=== PATIENT | male | born 1955 | race Caucasian/White ===

== ENCOUNTER 2018-08-28 06:30 | Inpatient (IN) ==
[~2018-08-28 06:30] MED LIST: DEXAMETHASONE 4 MG/1 ML VIAL IV ONE; MOXIFLOXACIN 0.5% OPH SOLN 3 ML BOTTLE ONE; NEPAFENAC 0.1% OPH SOLN 3 ML BOTTLE ONE; PHENYLEPHRINE 10% ONE; prednisoLONE ACETATE 1% OPH SUSP 5 ML BOTTLE ONE
[2018-08-28] MEDS ORDERED: LIDOCAINE 1%/EPI INJ 20 ML VIAL ONE (06:36)
[2018-08-28] MEDS ORDERED: FAMOTIDINE 20 MG TABLET PO ONE (07:26)
[2018-08-28] MEDS ORDERED: DIAZEPAM 5 MG TABLET PO ONE (07:26)
[2018-08-28 07:47] LABS: Basophils # 0.1 10*3/uL (0.0-0.2); Basophils % 1.1 % (0.0-0.8); Eosinophils # 0.4 10*3/uL (0.0-0.87); Eosinophils % 5.8 % (0.00-10.9); Hemoglobin 15.1 GM/DL (14.0-18.0); Immature Granulocytes % 0.5 %; Immature Granulocytes Absolute 0.03 #; Lymphocytes # 1.8 10*3/uL (1.4-4.0); Mean Corpuscular HGB Conc 35.1 GM/DL (32-36); Mean Corpuscular Hemoglobin 32 PG (27-34); Mean Corpuscular Volume 91.3 FL (87-102); Mean Platelet Volume 11.3 FL (9.6-12.0); Monocytes # 0.9 10*3/uL (0.11-0.8); Monocytes % 14.5 % (1.7-12.7); Neutrophils # 3.1 10*3/uL (1.4-7.4); Neutrophils % 49.1 % (38.7-73.9); Platelet Count 150 T/CUMM (130-400); Red Blood Count 4.71 MC/CUMM (3.8-5.5); Red Cell Distribution Width 12.2 % (9.3-17.3); White Blood Count 6.2 T/CUMM (4-12)
[2018-08-28 08:10] LABS: Calcium 10.2 MG/DL (8.5-10.1); Osmolality,Calculated 283.8 MOS/KG (273-304); Potassium 3.9 MMOL/L (3.5-5.1)
[2018-08-28] MEDS: LACTATED RINGERS 1,000 ML IV SCH ×3 (08:30→13:57)
[2018-08-28] MEDS ORDERED: FAMOTIDINE 20 MG TABLET ONE (08:32)
[2018-08-28] MEDS ORDERED: DIAZEPAM 5 MG TABLET ONE (08:32)
[2018-08-28] MEDS ORDERED: cefTRIAXone 1,000 MG in SYRINGE 1 EACH IV ONE (10:35)
[2018-08-28] MEDS ORDERED: cefTRIAXone 1,000 MG VIAL ONE (10:36)
[2018-08-28] MEDS ORDERED: PROPOFOL 200 MG/20 ML VIAL IV ONE (12:08)
[2018-08-28] MEDS ORDERED: ONDANSETRON 4 MG/2 ML VIAL ONE (12:09)
[2018-08-28] MEDS ORDERED: KETAMINE 500 MG/10 ML VIAL ONE (12:09)
[2018-08-28] MEDS ORDERED: MIDAZOLAM 2 MG/2 ML VIAL ONE (12:09)
[2018-08-28] MEDS ORDERED: DEXAMETHASONE 20 MG/5 ML VIAL ONE (12:09)
[2018-08-28] MEDS ORDERED: fentaNYL 100 MCG/2 ML VIAL ONE (12:09)
[2018-08-28] MEDS ORDERED: GLYCOPYRROLATE 0.4 MG/2 ML VIAL ONE (12:10)
[2018-08-28] MEDS ORDERED: ROCURONIUM 100 MG/10 ML VIAL IV ONE (12:10)
[2018-08-28] MEDS ORDERED: MINERAL OIL/PETROLATUM OPH OINT 3.5 GM TUBE ONE (12:10)
[2018-08-28] MEDS ORDERED: NEOSTIGMINE 10 MG/10 ML VIAL ONE (12:11)
[2018-08-28] MEDS ORDERED: PHENYLEPHRINE 10 MG/1 ML VIAL IV ONE (12:11)
[2018-08-28] MEDS ORDERED: SODIUM CHLORIDE 0.9% 250 ML IV ONE (12:11)
[2018-08-28] MEDS ORDERED: LACTATED RINGERS 1,000 ML IV ONE (12:11)
[2018-08-28] MEDS: OXYMETAZOLINE 0.05% NASAL SPRAY 15 ML BOTTLE BOTH NARES PRN (13:20)
[2018-08-28] MEDS ORDERED: ONDANSETRON 4 MG/2 ML VIAL IV PRN (13:21)
[2018-08-28] MEDS ORDERED: diphenhydrAMINE 50 MG/1 ML VIAL IV PRN (13:21)
[2018-08-28] MEDS ORDERED: PHENYLEPHRINE 0.125% NASAL DROPS 15 ML BOTTLE BOTH NARES ONE (13:25)
[2018-08-28] MEDS ORDERED: IBUPROFEN 100 MG/5 ML UDCUP PO PRN (13:27)
[2018-08-28] MEDS ORDERED: HYDROmorphone PCA 30 MG/30 ML SYRINGE IV SCH (13:30)
[2018-08-28] MEDS ORDERED: RACEPINEPHRINE 0.5 ML NEB RESP TX ONE ×2 (13:36→13:38)
[2018-08-28] MEDS ORDERED: HYDROcod/ACETAMIN 7.5-325 MG/15 ML UDCUP PO PRN (13:46)
[2018-08-28] MEDS: HYDROmorphone 2 MG/1 ML VIAL IV PRN ×2 (14:05→15:59)
[2018-08-28] MEDS: DEXAMETHASONE 4 MG/1 ML VIAL IV SCH ×2 (15:08→21:58)
[2018-08-28] MEDS ORDERED: hydrALAZINE 20 MG/1 ML VIAL IV PRN (17:34)
[2018-08-28] MEDS: KETOROLAC 30 MG/1 ML VIAL IV PRN ×2 (17:42→23:51)
[2018-08-28] MEDS ORDERED: GLUCAGON 1 MG VIAL IM PRN (18:21)
[2018-08-28] MEDS ORDERED: DEXTROSE 50% 25 GM/50 ML SYRINGE IV PRN (18:21)
[2018-08-28] MEDS ORDERED: DIAZEPAM 5 MG TABLET PO PRN (18:27)
[2018-08-28] MEDS: INSULIN LISPRO 100 UNIT/ML SUBCUT SCH (20:56)
[2018-08-28] MEDS: amLODIPine 10 MG TABLET PO SCH (21:42)
[2018-08-28] MEDS: AMOXICILLIN/CLAV ES 600 125 ML/BOTTLE PO SCH (21:42)
[2018-08-28] MEDS: CHLORHEXIDINE 0.12% ORAL RINSE 60 ML BOTTLE SWISH/SPIT SCH (21:59)
[2018-08-29] MEDS: LACTATED RINGERS 1,000 ML IV SCH ×2 (02:35→15:31)
[2018-08-29 04:42] LABS: Basophils % 0.2 % (0.0-0.8); Hematocrit 43.4 VOL% (42.0-52.0); Immature Granulocytes % 0.7 %; Immature Granulocytes Absolute 0.09 #; Lymphocytes # 0.9 10*3/uL (1.4-4.0); Lymphocytes % 7.6 % (21.2-54.2); Mean Corpuscular HGB Conc 34.6 GM/DL (32-36); Mean Corpuscular Hemoglobin 32 PG (27-34); Mean Corpuscular Volume 93.1 FL (87-102); Mean Platelet Volume 12.4 FL (9.6-12.0); Monocytes # 0.7 10*3/uL (0.11-0.8); Monocytes % 5.5 % (1.7-12.7); Neutrophils # 10.7 10*3/uL (1.4-7.4); Platelet Count 139 T/CUMM (130-400); Red Blood Count 4.66 MC/CUMM (3.8-5.5); Red Cell Distribution Width 12.3 % (9.3-17.3); White Blood Count 12.4 T/CUMM (4-12)
[2018-08-29 05:03] LABS: Calcium 9.8 MG/DL (8.5-10.1); Osmolality,Calculated 284.4 MOS/KG (273-304); Potassium 4.5 MMOL/L (3.5-5.1)
[2018-08-29] MEDS: DEXAMETHASONE 4 MG/1 ML VIAL IV SCH ×3 (06:42→21:16)
[2018-08-29] MEDS: LOSARTAN 50 MG TABLET PO SCH (08:26)
[2018-08-29] MEDS: INSULIN LISPRO 100 UNIT/ML SUBCUT SCH ×4 (08:29→21:15)
[2018-08-29] MEDS: AMOXICILLIN/CLAV ES 600 125 ML/BOTTLE PO SCH ×2 (08:30→21:14)
[2018-08-29] MEDS: PIOGLITAZONE 15 MG TABLET PO SCH (08:33)
[2018-08-29] MEDS: HYDROmorphone 2 MG/1 ML VIAL IV PRN ×2 (08:34→15:32)
[2018-08-29] MEDS ORDERED: NON-FORMULARY MEDICATION (Umeclidinium Bromide [Incruse Ellipta] 1 PUFF) INH SCH (09:00)
[2018-08-29] MEDS ORDERED: NON-FORMULARY MEDICATION (Cyanocobalamin (Vitamin B-12) [Vitamin B-12] 5,000 MCG) PO SCH (09:00)
[2018-08-29] MEDS ORDERED: LIRAGLUTIDE SQ SCH (09:00)
[2018-08-29] MEDS ORDERED: AMINO ACIDS PO SCH (09:00)
[2018-08-29] MEDS ORDERED: [UNRECOGNIZED DRUG - OTHER] SQ SCH (09:00)
[2018-08-29] MEDS ORDERED: INSULIN DEGLUDEC SQ SCH (09:00)
[2018-08-29] MEDS ORDERED: cloNIDine 0.3 MG/24 HR PATCH TRANSDERM SCH (10:00)
[2018-08-29] MEDS ORDERED: MAGNESIUM SULF RIDER 4 GM in PREMIX 1 EACH IV PRN (11:05)
[2018-08-29] MEDS: MAGNESIUM SULF RIDER 2 GM in PREMIX 1 EACH IV PRN ×2 (11:47→13:42)
[2018-08-29] MEDS ORDERED: HYDROmorphone 2 MG TABLET PO PRN (12:25)
[2018-08-29] MEDS ORDERED: hydrALAZINE 20 MG/1 ML VIAL IV PRN (12:44)
[2018-08-29] MEDS ORDERED: TEMAZEPAM 15 MG CAPSULE PO PRN (12:45)
[2018-08-29] MEDS: INSULIN GLARGINE 100 UNIT/ML SUBCUT SCH ×2 (13:07→21:15)
[2018-08-29] MEDS: OXYMETAZOLINE 0.05% NASAL SPRAY 15 ML BOTTLE BOTH NARES PRN (13:13)
[2018-08-29] MEDS: ATORVASTATIN 20 MG TABLET PO SCH (15:46)
[2018-08-29] MEDS: ANASTROZOLE 1 MG TABLET PO SCH (15:46)
[2018-08-29] MEDS: FUROSEMIDE 20 MG TABLET PO SCH (15:46)
[2018-08-29] MEDS: MULTIVITAMIN (CENTRUM) TABLET PO SCH (15:46)
[2018-08-29] MEDS: CHLORHEXIDINE 0.12% ORAL RINSE 60 ML BOTTLE SWISH/SPIT SCH ×2 (15:47→21:13)
[2018-08-29] MEDS: PANTOPRAZOLE 20 MG TABLET PO SCH (15:47)
[2018-08-29] MEDS: OMEGA 3 ACID ETHYL ESTERS 1 GM CAPSULE PO SCH (15:47)
[2018-08-29] MEDS: FEBUXOSTAT 80 MG TABLET PO SCH (15:48)
[2018-08-29] MEDS: ZINC GLUCONATE 50 MG TABLET PO SCH (15:48)
[2018-08-29] MEDS ORDERED: niCARdipine INJ 25 MG in SODIUM CHLORIDE 0.9% 240 ML IV PRN (16:51)
[2018-08-29] MEDS: amLODIPine 10 MG TABLET PO SCH (21:11)
[2018-08-30] MEDS: LACTATED RINGERS 1,000 ML IV SCH (04:03)
[2018-08-30 04:17] LABS: Basophils % 0.1 % (0.0-0.8); Hemoglobin 15.1 GM/DL (14.0-18.0); Immature Granulocytes % 0.5 %; Immature Granulocytes Absolute 0.07 #; Lymphocytes # 0.7 10*3/uL (1.4-4.0); Lymphocytes % 5.2 % (21.2-54.2); Mean Corpuscular HGB Conc 33.6 GM/DL (32-36); Mean Corpuscular Hemoglobin 31 PG (27-34); Mean Corpuscular Volume 93.2 FL (87-102); Mean Platelet Volume 12.8 FL (9.6-12.0); Monocytes # 0.9 10*3/uL (0.11-0.8); Monocytes % 6.4 % (1.7-12.7); Neutrophils # 12.5 10*3/uL (1.4-7.4); Neutrophils % 87.8 % (38.7-73.9); Platelet Count 127 T/CUMM (130-400); Red Blood Count 4.83 MC/CUMM (3.8-5.5); Red Cell Distribution Width 12.7 % (9.3-17.3); White Blood Count 14.3 T/CUMM (4-12)
[2018-08-30 04:42] LABS: Hypochromasia Slight; Platelet Estimate Decreased
[2018-08-30 04:47] LABS: Calcium 9.3 MG/DL (8.5-10.1); Osmolality,Calculated 283.7 MOS/KG (273-304); Potassium 5.2 MMOL/L (3.5-5.1)
[2018-08-30] MEDS: DEXAMETHASONE 4 MG/1 ML VIAL IV SCH (06:26)
[2018-08-30] MEDS: INSULIN GLARGINE 100 UNIT/ML SUBCUT SCH (08:58)
[2018-08-30] MEDS: ANASTROZOLE 1 MG TABLET PO SCH (08:59)
[2018-08-30] MEDS: PIOGLITAZONE 15 MG TABLET PO SCH (08:59)
[2018-08-30] MEDS: INSULIN LISPRO 100 UNIT/ML SUBCUT SCH (08:59)
[2018-08-30] MEDS: FEBUXOSTAT 80 MG TABLET PO SCH (09:00)
[2018-08-30] MEDS: LOSARTAN 50 MG TABLET PO SCH (09:00)
[2018-08-30] MEDS: PANTOPRAZOLE 20 MG TABLET PO SCH (09:00)
[2018-08-30] MEDS: OMEGA 3 ACID ETHYL ESTERS 1 GM CAPSULE PO SCH (09:00)
[2018-08-30] MEDS: FUROSEMIDE 20 MG TABLET PO SCH (09:00)
[2018-08-30] MEDS: MULTIVITAMIN (CENTRUM) TABLET PO SCH (09:00)
[2018-08-30] MEDS: ATORVASTATIN 20 MG TABLET PO SCH (09:01)
[2018-08-30] MEDS: ZINC GLUCONATE 50 MG TABLET PO SCH (09:01)
[2018-08-30] MEDS: AMOXICILLIN/CLAV ES 600 125 ML/BOTTLE PO SCH (09:02)
[2018-08-30] MEDS: CHLORHEXIDINE 0.12% ORAL RINSE 60 ML BOTTLE SWISH/SPIT SCH (09:03)
[2018-08-30 09:41] VITALS: BP 149/90
== END 2018-08-30 10:30 | disposition home or self-care (01) | DRG 131 ==
LOC: N.OR 06:30 → N.SDSINP 06:33 → N.ICU 13:20
PROVIDERS: ADMIT Otolaryngology; ATTEND Otolaryngology